=== PATIENT | female | born 1955 | race Caucasian/White ===

== ENCOUNTER 2021-03-01 16:58 | Inpatient (IN) | payer MEDICARE ==
[2021-03-01 18:15] LABS: #Basophils 0.1 thou/uL (0.0-0.2); #Eosinphils 0.1 thou/uL (0.0-0.7); #Lymphocytes 1.8 thou/uL (1.20-3.40); #Monocytes 1.2 thou/uL (0.11-0.59); #Neutrophils 13.8 thou/uL (1.40-6.50); %Basophils 0.3 % (0.0-1.0); %Eosinophils 0.3 % (0.0-10.0); %Lymphocytes 10.8 % (21.0-51.0); %Monocytes 7.2 % (0.0-10.0); %Neutrophils 81.4 % (42.0-75.0); Hemoglobin 13.5 g/dL (12.0-16.0); Mean Corpuscular HGB CONC 34.4 g/dL (32.0-36.0); Mean Corpuscular Volume 90.1 fL (78.0-98.0); Mean Platelet Volume 7.3 fL (7.4-10.4); Platelet Count 335 thou/uL (130-400); Red Blood Cell (RBC) Count 4.36 mill/uL (4.20-5.40)
[2021-03-01 18:36] LABS: ALT (SGPT) 14 U/L (8-55); AST (SGOT) 25 U/L (5-34); Albumin 3.8 g/dL (3.4-4.8); Alkaline Phosphatase 97 U/L (40-110); Anion Gap 11 mmol/L (10-20); BUN (Urea Nitrogen) 13 mg/dL (9.8-20.1); Bilirubin, Total 0.8 mg/dL (0.2-1.2); Calc. Creatinine Clearance 0 mL/min (70-130); Calcium 8.3 mg/dL (7.8-10.44); Carbon Dioxide 24 mmol/L (23-31); Globulin 3.1 g/dL (2.4-3.5); Glucose 117 mg/dL (80-115); Potassium 3.1 mmol/L (3.5-5.1); Protein, Total 6.9 g/dL (5.8-8.1)
[2021-03-01 18:43] LABS: Chloride 74 mmol/L (98-107); Sodium 106 mmol/L (136-145)
[2021-03-01 19:05] LABS: Bilirubin Negative (Negative); Blood, Urine 3+ (Negative); Clarity Clear (Clear); Glucose, Urine (Dipstick) Normal (Negative); Ketone, Urine 60 mg/dL (Negative); Leukocyte Negative Leu/uL (Negative); Mucous/LPF Rare LPF (<2+); Nitrite Negative (Negative); Protein, Urine (Dipstick) 70 mg/dL (Neg-Trace); RBC/HPF Greater than 50 HPF (0-3); Specific Gravity, Urine 1.025 (1.002-1.036); Urobilinogen Normal mg/dL (Less than 2); pH, Urine 6.5 (5.0-9.0)
[2021-03-01] MEDS ORDERED: Potassium Chloride 20 MEQ TAB PO SCH ×2 (19:09→22:45)
[2021-03-01 19:13] LABS: Bacteria/HPF 1+ HPF (None Seen)
[2021-03-01 19:41] LABS: Magnesium 1.5 mg/dL (1.6-2.6)
[2021-03-01 19:45] LABS: Phosphorus 1.9 mg/dL (2.3-4.7)
[2021-03-01] MEDS ORDERED: PHOS-NAK 1 PKT PACK PO SCH (20:00)
[2021-03-01] MEDS ORDERED: Magnesium Sulfate 4 GM in Sodium Chloride 0.9% 250 ML 250 ML IVPB SCH (20:00)
[2021-03-01] MEDS ORDERED: Potassium Chloride 20 MEQ TAB ONE (20:09)
[2021-03-01 20:18] LABS: SARS-CoV-2 NAA Rapid Test Not Detected (NotDetected)
[2021-03-01] MEDS ORDERED: Cefdinir 300 MG CAP PO SCH (20:45)
[2021-03-01] MEDS ORDERED: Ondansetron PF 4 MG/2 ML Vial IVP PRN (20:50)
[2021-03-01] MEDS ORDERED: Ondansetron ODT 4 MG TAB PO PRN (20:50)
[2021-03-01] MEDS ORDERED: Acetaminophen 650 MG Suppository PR PRN (20:50)
[2021-03-01 20:54] LABS: Anion Gap 10 mmol/L (10-20); BUN (Urea Nitrogen) 13 mg/dL (9.8-20.1); Calc. Creatinine Clearance 0 mL/min (70-130); Carbon Dioxide 26 mmol/L (23-31); Glucose 109 mg/dL (80-115); Potassium 3.1 mmol/L (3.5-5.1)
[2021-03-01 21:00] LABS: Chloride 74 mmol/L (98-107); Sodium 107 mmol/L (136-145)
[2021-03-01] MEDS ORDERED: Electrolyte Replacement Protocol 1 EACH FS SCH (21:00)
[2021-03-01 22:15] VITALS: BMI 31.1
[2021-03-01 22:30] LABS: Anion Gap 11 mmol/L (10-20); BUN (Urea Nitrogen) 12 mg/dL (9.8-20.1); Calc. Creatinine Clearance 147 mL/min (70-130); Calcium 8.1 mg/dL (7.8-10.44); Carbon Dioxide 25 mmol/L (23-31); Chloride 75 mmol/L (98-107); Glucose 110 mg/dL (80-115); Potassium 3.5 mmol/L (3.5-5.1)
[2021-03-01 22:32] LABS: Sodium 107 mmol/L (136-145)
[2021-03-01] MEDS: cefTRIAXone\\ROCEPHIN 1 GM in Sodium Chloride 0.9% 100 ML IVPB SCH (22:48)
[2021-03-01] MEDS: Sodium Chloride 3% 100 ML IVPB SCH ×6 (22:55→23:43)
[2021-03-01] MEDS ORDERED: Sodium Chloride 3% 100 ML IVPB SCH (23:00)
[2021-03-01] MEDS ORDERED: Dextrose 50% Abboject 50 ML SYRINGE SLOW IVP PRN (23:57)
[2021-03-01] MEDS ORDERED: HumaLOG 300 UNITS/3 ML VIAL SC PRN ×2 (23:57)
[2021-03-01] MEDS ORDERED: Dextrose 5% in Water 1,000 ML IV PRN (23:57)
[2021-03-02 01:56] LABS: #Eosinphils 0.1 thou/uL (0.0-0.7); #Lymphocytes 1.8 thou/uL (1.20-3.40); #Neutrophils 14.1 thou/uL (1.40-6.50); %Basophils 0.2 % (0.0-1.0); %Eosinophils 0.4 % (0.0-10.0); %Lymphocytes 10.2 % (21.0-51.0); %Monocytes 10.9 % (0.0-10.0); %Neutrophils 78.3 % (42.0-75.0); Hemoglobin 14.3 g/dL (12.0-16.0); Mean Corpuscular HGB CONC 35.4 g/dL (32.0-36.0); Mean Corpuscular Hemoglobin 31.9 pg (27.0-31.0); Mean Corpuscular Volume 90.1 fL (78.0-98.0); Mean Platelet Volume 6.9 fL (7.4-10.4); Platelet Count 346 thou/uL (130-400); Red Blood Cell (RBC) Count 4.48 mill/uL (4.20-5.40); White Blood Cell (WBC) Count 18.1 thou/uL (4.8-10.8)
[2021-03-02 02:10] LABS: Anion Gap 13 mmol/L (10-20); BUN (Urea Nitrogen) 10 mg/dL (9.8-20.1); Calc. Creatinine Clearance 130 mL/min (70-130); Calcium 8.2 mg/dL (7.8-10.44); Carbon Dioxide 21 mmol/L (23-31); Chloride 77 mmol/L (98-107); Glucose 118 mg/dL (80-115); Potassium 4.1 mmol/L (3.5-5.1)
[2021-03-02 02:12] LABS: Sodium 107 mmol/L (136-145)
[2021-03-02] MEDS ORDERED: Sodium Chloride 3% 100 ML IVPB SCH (02:45)
[2021-03-02] MEDS: Acetaminophen 325 MG TAB PO PRN (03:06)
[2021-03-02] MEDS ORDERED: Morphine 4 MG/ML VIAL SLOW IVP SCH (04:15)
[2021-03-02 05:10] LABS: Anion Gap 13 mmol/L (10-20); BUN (Urea Nitrogen) 9 mg/dL (9.8-20.1); Calc. Creatinine Clearance 139 mL/min (70-130); Calcium 7.9 mg/dL (7.8-10.44); Carbon Dioxide 21 mmol/L (23-31); Chloride 80 mmol/L (98-107); Glucose 102 mg/dL (80-115); Potassium 3.8 mmol/L (3.5-5.1)
[2021-03-02 05:13] LABS: Sodium 110 mmol/L (136-145)
[2021-03-02] MEDS ORDERED: Potassium Chloride 20 MEQ TAB PO SCH (05:30)
[2021-03-02 07:30] LABS: Magnesium 2.1 mg/dL (1.6-2.6); Phosphorus 1.5 mg/dL (2.3-4.7)
[2021-03-02] MEDS: Enoxaparin Sodium 40 MG/0.4 ML SYRINGE SC SCH (08:18)
[2021-03-02] MEDS: Sodium Chloride 1 GM TAB PO SCH ×3 (08:20→20:49)
[2021-03-02 08:35] LABS: Anion Gap 10 mmol/L (10-20); BUN (Urea Nitrogen) 8 mg/dL (9.8-20.1); Calc. Creatinine Clearance 134 mL/min (70-130); Calcium 7.9 mg/dL (7.8-10.44); Carbon Dioxide 24 mmol/L (23-31); Chloride 83 mmol/L (98-107); Glucose 123 mg/dL (80-115); Potassium 3.9 mmol/L (3.5-5.1)
[2021-03-02 08:41] LABS: Sodium 113 mmol/L (136-145)
[2021-03-02] MEDS ORDERED: Potassium Phosphate 30 MMOL in Sodium Chloride 0.9% 250 ML 250 ML IVPB SCH (09:15)
[2021-03-02 12:39] LABS: Anion Gap 14 mmol/L (10-20); BUN (Urea Nitrogen) 9 mg/dL (9.8-20.1); Calc. Creatinine Clearance 132 mL/min (70-130); Carbon Dioxide 21 mmol/L (23-31); Chloride 84 mmol/L (98-107); Glucose 116 mg/dL (80-115); Potassium 4.9 mmol/L (3.5-5.1); Sodium 114 mmol/L (136-145)
[2021-03-02 14:23] LABS: T4 7.6 ug/dL (4.87-11.72); Thyroid Stimulating Hormone 0.7623 uIU/mL (0.35-4.94)
[2021-03-02] MEDS ORDERED: Lidocaine 5% Patch TD SCH (14:30)
[2021-03-02] MEDS: traMADol HCl 50 MG TAB PO PRN (14:54)
[2021-03-02] MEDS: tiZANidine HCl 4 MG TAB PO PRN (14:56)
[2021-03-02 17:23] LABS: Anion Gap 10 mmol/L (10-20); BUN (Urea Nitrogen) 8 mg/dL (9.8-20.1); Calc. Creatinine Clearance 153 mL/min (70-130); Calcium 7.8 mg/dL (7.8-10.44); Carbon Dioxide 22 mmol/L (23-31); Chloride 86 mmol/L (98-107); Glucose 108 mg/dL (80-115); Potassium 4.3 mmol/L (3.5-5.1)
[2021-03-02 17:33] LABS: Sodium 114 mmol/L (136-145)
[2021-03-02] MEDS: cefTRIAXone\\ROCEPHIN 1 GM in Sodium Chloride 0.9% 100 ML IVPB SCH (20:48)
[2021-03-02] MEDS: Atorvastatin Calcium 10 MG TAB PO SCH (20:48)
[2021-03-02 21:32] LABS: Anion Gap 10 mmol/L (10-20); BUN (Urea Nitrogen) 9 mg/dL (9.8-20.1); Calc. Creatinine Clearance 123 mL/min (70-130); Calcium 8.3 mg/dL (7.8-10.44); Carbon Dioxide 25 mmol/L (23-31); Chloride 87 mmol/L (98-107); Glucose 142 mg/dL (80-115)
[2021-03-02 21:37] LABS: Sodium 118 mmol/L (136-145)
[2021-03-02] MEDS ORDERED: Dextrose 5% in Water 1,000 ML IV SCH (22:45)
[2021-03-03] MEDS: tiZANidine HCl 4 MG TAB PO PRN ×2 (00:38→21:46)
[2021-03-03] MEDS: traMADol HCl 50 MG TAB PO PRN ×3 (00:38→21:31)
[2021-03-03] MEDS ORDERED: Transdermal Patch Removal TOP SCH ×2 (02:30→22:30)
[2021-03-03 03:11] LABS: #Eosinphils 0.1 thou/uL (0.0-0.7); #Lymphocytes 1.8 thou/uL (1.20-3.40); #Monocytes 1.4 thou/uL (0.11-0.59); #Neutrophils 8.9 thou/uL (1.40-6.50); %Basophils 0.3 % (0.0-1.0); %Eosinophils 0.6 % (0.0-10.0); %Lymphocytes 14.8 % (21.0-51.0); %Monocytes 11.5 % (0.0-10.0); %Neutrophils 72.8 % (42.0-75.0); Hemoglobin 12.9 g/dL (12.0-16.0); Mean Corpuscular HGB CONC 34.8 g/dL (32.0-36.0); Mean Corpuscular Hemoglobin 32.1 pg (27.0-31.0); Mean Corpuscular Volume 92.3 fL (78.0-98.0); Platelet Count 267 thou/uL (130-400); RBC Distribution Width 12.1 % (11.5-14.5); Red Blood Cell (RBC) Count 4.01 mill/uL (4.20-5.40); White Blood Cell (WBC) Count 12.2 thou/uL (4.8-10.8)
[2021-03-03 03:36] LABS: Anion Gap 11 mmol/L (10-20); BUN (Urea Nitrogen) 8 mg/dL (9.8-20.1); Calc. Creatinine Clearance 150 mL/min (70-130); Calcium 8.1 mg/dL (7.8-10.44); Carbon Dioxide 22 mmol/L (23-31); Chloride 90 mmol/L (98-107); Glucose 100 mg/dL (80-115); Potassium 3.8 mmol/L (3.5-5.1)
[2021-03-03 03:40] LABS: Sodium 119 mmol/L (136-145)
[2021-03-03 06:07] LABS: Anion Gap 11 mmol/L (10-20); BUN (Urea Nitrogen) 15 mg/dL (9.8-20.1); Calc. Creatinine Clearance 105 mL/min (70-130); Calcium 9.9 mg/dL (7.8-10.44); Carbon Dioxide 25 mmol/L (23-31); Chloride 102 mmol/L (98-107); Glucose 128 mg/dL (80-115); Potassium 3.7 mmol/L (3.5-5.1); Sodium 134 mmol/L (136-145)
[2021-03-03] MEDS: Enoxaparin Sodium 40 MG/0.4 ML SYRINGE SC SCH (08:10)
[2021-03-03] MEDS: Losartan 25 MG TAB PO SCH (08:10)
[2021-03-03 08:14] LABS: Anion Gap 11 mmol/L (10-20); BUN (Urea Nitrogen) 8 mg/dL (9.8-20.1); Calc. Creatinine Clearance 139 mL/min (70-130); Calcium 8.5 mg/dL (7.8-10.44); Carbon Dioxide 25 mmol/L (23-31); Chloride 88 mmol/L (98-107); Glucose 104 mg/dL (80-115); Potassium 3.7 mmol/L (3.5-5.1); Sodium 120 mmol/L (136-145)
[2021-03-03] MEDS: Sodium Chloride 1 GM TAB PO SCH ×2 (08:17→21:30)
[2021-03-03] MEDS ORDERED: Lidocaine 5% Patch TD SCH (10:30)
[2021-03-03 12:30] LABS: Anion Gap 11 mmol/L (10-20); BUN (Urea Nitrogen) 12 mg/dL (9.8-20.1); Calc. Creatinine Clearance 125 mL/min (70-130); Calcium 8.3 mg/dL (7.8-10.44); Carbon Dioxide 24 mmol/L (23-31); Chloride 88 mmol/L (98-107); Glucose 144 mg/dL (80-115); Potassium 3.6 mmol/L (3.5-5.1)
[2021-03-03 12:43] LABS: Sodium 119 mmol/L (136-145)
[2021-03-03] MEDS ORDERED: Sodium Chloride 1 GM TAB PO SCH (15:15)
[2021-03-03 16:12] LABS: Anion Gap 10 mmol/L (10-20); BUN (Urea Nitrogen) 12 mg/dL (9.8-20.1); Calc. Creatinine Clearance 127 mL/min (70-130); Calcium 8.5 mg/dL (7.8-10.44); Carbon Dioxide 27 mmol/L (23-31); Chloride 89 mmol/L (98-107); Glucose 95 mg/dL (80-115); Potassium 3.9 mmol/L (3.5-5.1); Sodium 122 mmol/L (136-145)
[2021-03-03 20:54] LABS: Anion Gap 9 mmol/L (10-20); BUN (Urea Nitrogen) 13 mg/dL (9.8-20.1); Calc. Creatinine Clearance 121 mL/min (70-130); Calcium 8.6 mg/dL (7.8-10.44); Carbon Dioxide 28 mmol/L (23-31); Chloride 91 mmol/L (98-107); Glucose 112 mg/dL (80-115); Potassium 3.9 mmol/L (3.5-5.1); Sodium 124 mmol/L (136-145)
[2021-03-03] MEDS: cefTRIAXone\\ROCEPHIN 1 GM in Sodium Chloride 0.9% 100 ML IVPB SCH (21:30)
[2021-03-03] MEDS: Atorvastatin Calcium 10 MG TAB PO SCH (21:31)
[2021-03-04 01:23] LABS: Anion Gap 11 mmol/L (10-20); BUN (Urea Nitrogen) 11 mg/dL (9.8-20.1); Calc. Creatinine Clearance 134 mL/min (70-130); Calcium 9.1 mg/dL (7.8-10.44); Carbon Dioxide 26 mmol/L (23-31); Chloride 91 mmol/L (98-107); Glucose 103 mg/dL (80-115); Sodium 124 mmol/L (136-145)
[2021-03-04 05:01] LABS: #Basophils 0.1 thou/uL (0.0-0.2); #Eosinphils 0.1 thou/uL (0.0-0.7); #Lymphocytes 1.9 thou/uL (1.20-3.40); #Monocytes 1.1 thou/uL (0.11-0.59); #Neutrophils 6.2 thou/uL (1.40-6.50); %Eosinophils 1.1 % (0.0-10.0); %Lymphocytes 20.3 % (21.0-51.0); %Monocytes 11.7 % (0.0-10.0); Hemoglobin 13.7 g/dL (12.0-16.0); Mean Corpuscular HGB CONC 34.8 g/dL (32.0-36.0); Mean Corpuscular Hemoglobin 32.4 pg (27.0-31.0); Mean Corpuscular Volume 93.1 fL (78.0-98.0); Mean Platelet Volume 7.3 fL (7.4-10.4); Platelet Count 285 thou/uL (130-400); RBC Distribution Width 12.2 % (11.5-14.5); Red Blood Cell (RBC) Count 4.24 mill/uL (4.20-5.40); White Blood Cell (WBC) Count 9.4 thou/uL (4.8-10.8)
[2021-03-04 05:24] LABS: Anion Gap 10 mmol/L (10-20); BUN (Urea Nitrogen) 10 mg/dL (9.8-20.1); Calc. Creatinine Clearance 135 mL/min (70-130); Calcium 8.6 mg/dL (7.8-10.44); Carbon Dioxide 26 mmol/L (23-31); Chloride 92 mmol/L (98-107); Glucose 98 mg/dL (80-115); Potassium 3.5 mmol/L (3.5-5.1); Sodium 124 mmol/L (136-145)
[2021-03-04 06:39] LABS: Magnesium 1.8 mg/dL (1.6-2.6); Phosphorus 2.4 mg/dL (2.3-4.7)
[2021-03-04] MEDS: Potassium Chloride 20 MEQ TAB PO SCH ×2 (06:51→12:09)
[2021-03-04] MEDS ORDERED: Lidocaine 5% Patch TD SCH (09:00)
[2021-03-04] MEDS: Enoxaparin Sodium 40 MG/0.4 ML SYRINGE SC SCH (09:46)
[2021-03-04] MEDS: Losartan 25 MG TAB PO SCH (09:50)
[2021-03-04] MEDS: Sodium Chloride 1 GM TAB PO SCH ×3 (09:50→20:27)
[2021-03-04] MEDS ORDERED: Losartan 25 MG TAB PO SCH (12:45)
[2021-03-04] MEDS: tiZANidine HCl 4 MG TAB PO PRN (15:25)
[2021-03-04] MEDS ORDERED: Methocarbamol 500 MG TAB PO SCH (18:00)
[2021-03-04] MEDS: traMADol HCl 50 MG TAB PO PRN (18:57)
[2021-03-04] MEDS: cefTRIAXone\\ROCEPHIN 1 GM in Sodium Chloride 0.9% 100 ML IVPB SCH (20:27)
[2021-03-04] MEDS: Atorvastatin Calcium 10 MG TAB PO SCH (20:27)
[2021-03-04] MEDS ORDERED: hydrALAZINE 20 MG/ML VIAL SLOW IVP PRN (20:38)
[2021-03-04] MEDS ORDERED: Transdermal Patch Removal TOP SCH (21:00)
[2021-03-04] MEDS ORDERED: Bacitracin 1 PK TOP SCH (22:15)
[2021-03-05 04:33] LABS: #Basophils 0.1 thou/uL (0.0-0.2); #Eosinphils 0.1 thou/uL (0.0-0.7); #Lymphocytes 2.2 thou/uL (1.20-3.40); %Basophils 0.6 % (0.0-1.0); %Lymphocytes 19.7 % (21.0-51.0); %Monocytes 8.5 % (0.0-10.0); %Neutrophils 70.2 % (42.0-75.0); Hemoglobin 12.8 g/dL (12.0-16.0); Mean Corpuscular Hemoglobin 32.8 pg (27.0-31.0); Mean Corpuscular Volume 93.8 fL (78.0-98.0); Mean Platelet Volume 6.9 fL (7.4-10.4); Platelet Count 283 thou/uL (130-400); RBC Distribution Width 12.3 % (11.5-14.5); Red Blood Cell (RBC) Count 3.91 mill/uL (4.20-5.40); White Blood Cell (WBC) Count 11.3 thou/uL (4.8-10.8)
[2021-03-05 04:56] LABS: Anion Gap 11 mmol/L (10-20); BUN (Urea Nitrogen) 9 mg/dL (9.8-20.1); Calc. Creatinine Clearance 126 mL/min (70-130); Calcium 8.7 mg/dL (7.8-10.44); Carbon Dioxide 26 mmol/L (23-31); Chloride 93 mmol/L (98-107); Glucose 101 mg/dL (80-115); Potassium 4.4 mmol/L (3.5-5.1); Sodium 126 mmol/L (136-145)
[2021-03-05] MEDS: Potassium Chloride 20 MEQ TAB PO SCH (08:38)
[2021-03-05] MEDS: Enoxaparin Sodium 40 MG/0.4 ML SYRINGE SC SCH (08:39)
[2021-03-05] MEDS: Bacitracin 1 PK TOP SCH ×2 (08:39→20:52)
[2021-03-05] MEDS ORDERED: Losartan 25 MG TAB PO SCH (09:00)
[2021-03-05] MEDS: Sodium Chloride 1 GM TAB PO SCH ×3 (09:37→20:50)
[2021-03-05] MEDS ORDERED: Methocarbamol 500 MG TAB PO PRN (14:03)
[2021-03-05] MEDS: Acetaminophen 325 MG TAB PO PRN (18:15)
[2021-03-05] MEDS: traMADol HCl 50 MG TAB PO PRN (20:50)
[2021-03-05] MEDS: Atorvastatin Calcium 10 MG TAB PO SCH (20:50)
[2021-03-06] MEDS ORDERED: Losartan 25 MG TAB PO SCH (09:00)
[2021-03-06] MEDS: Enoxaparin Sodium 40 MG/0.4 ML SYRINGE SC SCH (09:05)
[2021-03-06] MEDS: Potassium Chloride 20 MEQ TAB PO SCH (09:05)
[2021-03-06] MEDS: Bacitracin 1 PK TOP SCH (09:05)
[2021-03-06] MEDS: Sodium Chloride 1 GM TAB PO SCH (09:08)
[2021-03-06] MEDS: Acetaminophen 325 MG TAB PO PRN (09:10)
[2021-03-06 10:52] LABS: #Eosinphils 0.1 thou/uL (0.0-0.7); #Lymphocytes 1.8 thou/uL (1.20-3.40); #Monocytes 0.8 thou/uL (0.11-0.59); #Neutrophils 7.8 thou/uL (1.40-6.50); %Basophils 0.3 % (0.0-1.0); %Eosinophils 1.2 % (0.0-10.0); %Lymphocytes 16.8 % (21.0-51.0); %Monocytes 7.3 % (0.0-10.0); %Neutrophils 74.4 % (42.0-75.0); Hemoglobin 13.5 g/dL (12.0-16.0); Mean Corpuscular HGB CONC 33.7 g/dL (32.0-36.0); Mean Corpuscular Hemoglobin 31.8 pg (27.0-31.0); Mean Corpuscular Volume 94.4 fL (78.0-98.0); Mean Platelet Volume 7.1 fL (7.4-10.4); Platelet Count 294 thou/uL (130-400); RBC Distribution Width 12.5 % (11.5-14.5); Red Blood Cell (RBC) Count 4.24 mill/uL (4.20-5.40); White Blood Cell (WBC) Count 10.5 thou/uL (4.8-10.8)
[2021-03-06 12:03] VITALS: BP 143/65; TEMP 97.6
[2021-03-06 12:15] LABS: Anion Gap 12 mmol/L (10-20); BUN (Urea Nitrogen) 14 mg/dL (9.8-20.1); Calc. Creatinine Clearance 112 mL/min (70-130); Carbon Dioxide 24 mmol/L (23-31); Chloride 94 mmol/L (98-107); Glucose 189 mg/dL (80-115); Potassium 4.3 mmol/L (3.5-5.1); Sodium 126 mmol/L (136-145)
== END 2021-03-06 14:30 | disposition home or self-care (01) | DRG 643 ==
LOC: ERS 16:58 → CCU 20:19 → 2NO 03-03 13:26
PROVIDERS: ADMIT Student in an Organized Health Care Education/Training Program; ATTEND Internal Medicine
DX: E22.2 Syndrome of inappropriate secretion of antidiuretic hormone (principal); Z20.822 Contact with and (suspected) exposure to COVID-19; Z23 Encounter for immunization; G93.41 Metabolic encephalopathy; N39.0 Urinary tract infection, site not specified; E87.2 Acidosis; I44.1 Atrioventricular block, second degree; M62.838 Other muscle spasm; E87.6 Hypokalemia; E83.39 Other disorders of phosphorus metabolism; E83.42 Hypomagnesemia; F17.210 Nicotine dependence, cigarettes, uncomplicated; E78.5 Hyperlipidemia, unspecified; G89.29 Other chronic pain; M54.9 Dorsalgia, unspecified; E11.9 Type 2 diabetes mellitus without complications; T50.2X5A Adverse effect of carbonic-anhydrase inhibitors, benzothiadiazides and other diuretics, initial encounter; J44.9 Chronic obstructive pulmonary disease, unspecified; I08.1 Rheumatic disorders of both mitral and tricuspid valves; E66.9 Obesity, unspecified; Z68.29 Body mass index [BMI] 29.0-29.9, adult; Z79.899 Other long term (current) drug therapy; Z79.84 Long term (current) use of oral hypoglycemic drugs
CPT/HCPCS: 36415; 36416; 71045; 72170; 80048; 81003; 81015; 83735; 83880; 83930; 83935; 84100; 84436; 84443; 85025; 85652; 86140; 87086; 90471; 90732; 93005; 93010; 93306; 96365; G0009; J0360; J0696; J1650; J2270; J3475; J3490; J7050; J7070; J7131; U0002

== ENCOUNTER 2021-08-16 12:25 | Outpatient (CLI) | payer MEDICARE ==
[2021-08-16 14:35] LABS: Anion Gap 13 mmol/L (10-20); BUN (Urea Nitrogen) 12 mg/dL (9.8-20.1); Calc. Creatinine Clearance 0 mL/min (70-130); Calcium 9.2 mg/dL (7.8-10.44); Carbon Dioxide 27 mmol/L (23-31); Chloride 101 mmol/L (98-107); Glucose 181 mg/dL (80-115); Sodium 137 mmol/L (136-145)
[2021-08-17 02:04] LABS: SARS-CoV-2 PCR by NAA Not Detected (NotDetected)
== END 2021-08-16 12:26 | disposition home or self-care (01) ==
LOC: LABBT 12:25
PROVIDERS: ATTEND Radiology Diagnostic Radiology
DX: Z01.818 Encounter for other preprocedural examination (principal); M51.16 Intervertebral disc disorders with radiculopathy, lumbar region; E87.1 Hypo-osmolality and hyponatremia; Z20.822 Contact with and (suspected) exposure to COVID-19
CPT/HCPCS: 80048; 93005; U0003; U0005; 93010

== ENCOUNTER 2021-08-21 06:02 | Day surgery (SDC) | payer MEDICARE ==
[2021-08-20 10:17] VITALS: BMI 32.5
[2021-08-21] MEDS ORDERED: fentaNYL Citrate/PF 100 MCG/2 ML SYRINGE ONE (06:15)
[2021-08-21] MEDS ORDERED: Bupivacaine PF 0.5% 30 ML VIAL ONE (06:40)
[2021-08-21] MEDS ORDERED: Thrombin 5000 UNITS/5 ML VIAL ONE (06:40)
[2021-08-21] MEDS ORDERED: SUGAMMADEX SODIUM 200 MG/2 ML VIAL ONE (06:58)
[2021-08-21] MEDS ORDERED: PROPOFOL 200 MG/20 ML VIAL ONE (07:05)
[2021-08-21] MEDS ORDERED: Lidocaine 1% PF 5 ML VIAL ONE ×2 (07:05)
[2021-08-21] MEDS ORDERED: Dexamethasone 20 MG/5 ML VIAL ONE (07:05)
[2021-08-21] MEDS ORDERED: PHENYLEPHRINE-NS 100 MCG/ML 10 ML SYRINGE ONE (07:05)
[2021-08-21] MEDS ORDERED: Ketorolac Tromethamine 30 MG/ML VIAL ONE (07:05)
[2021-08-21] MEDS ORDERED: Rocuronium Bromide 10 MG/ML (10ML VIAL) ONE (07:05)
[2021-08-21] MEDS ORDERED: Albuterol Sulfate HFA (OR ONLY) ONE (07:05)
[2021-08-21] MEDS ORDERED: Ondansetron PF 4 MG/2 ML Vial ONE (07:05)
[2021-08-21] MEDS ORDERED: cefOXitin 2 GM VIAL ONE (07:06)
[2021-08-21] MEDS ORDERED: CEFAZOLIN 1 GM VIAL ONE (07:11)
[2021-08-21] MEDS ORDERED: Lidocaine 1% w/Epinephrine 1:100K 20 ML VIAL ONE (07:28)
[2021-08-21] MEDS ORDERED: Fentanyl 100 MCG/2 ML VIAL ONE ×2 (09:41→10:34)
[2021-08-21] MEDS ORDERED: CEFAZOLIN 2 GM VIAL ONE (12:09)
[2021-08-21] MEDS ORDERED: Sodium Chloride 0.9% 100 ML ONE (12:09)
== END 2021-08-21 12:50 | disposition home or self-care (01) ==
LOC: SDC 06:02
PROVIDERS: ATTEND Neurological Surgery
PROC: 0ST20ZZ Resection of Lumbar Vertebral Disc, Open Approach (ICD-10-PCS; principal; 2021-08-21)
PROC: 01NB0ZZ Release Lumbar Nerve, Open Approach (ICD-10-PCS; 2021-08-21)
DX: M51.16 Intervertebral disc disorders with radiculopathy, lumbar region (principal); M48.062 Spinal stenosis, lumbar region with neurogenic claudication; M51.25 Other intervertebral disc displacement, thoracolumbar region; M43.16 Spondylolisthesis, lumbar region; E78.5 Hyperlipidemia, unspecified; G89.4 Chronic pain syndrome; F17.200 Nicotine dependence, unspecified, uncomplicated; Z79.82 Long term (current) use of aspirin; Z79.84 Long term (current) use of oral hypoglycemic drugs; Z79.899 Other long term (current) drug therapy
CPT/HCPCS: 76000; C1713; J0690; J0694; J1100; J1885; J2405; J2704; J3010; J3490; S0020

== ENCOUNTER 2021-12-25 09:42 | Day surgery (SDC) | payer MEDICARE ==
[2021-12-23 12:38] VITALS: BMI 32.5
[2021-12-25] MEDS ORDERED: Lidocaine 1% (PF) 30 ML VIAL ONE (10:16)
[2021-12-25] MEDS ORDERED: EPINEPHrine 1 MG/ML AMP ONE (10:16)
[2021-12-25] MEDS ORDERED: Propofol 500 MG/50 ML VIAL ONE (10:25)
[2021-12-25] MEDS ORDERED: fentaNYL Citrate/PF 100 MCG/2 ML SYRINGE ONE (11:31)
[2021-12-25] MEDS ORDERED: PROPOFOL 40 ML ONE (11:32)
[2021-12-25] MEDS ORDERED: Famotidine/PF 20 mg/2ml Vial ONE (11:32)
[2021-12-25] MEDS ORDERED: CEFAZOLIN 2 GM VIAL ONE (11:36)
[2021-12-25] MEDS ORDERED: Sodium Chloride 0.9% 100 ML ONE (11:36)
[2021-12-25] MEDS ORDERED: Lidocaine 1% MPF 2 ML VIAL ONE (11:43)
[2021-12-25] MEDS ORDERED: Ketorolac Tromethamine 30 MG/ML VIAL ONE (11:43)
[2021-12-25] MEDS ORDERED: ePHEDrine 50 MG/ML VIAL ONE (11:43)
[2021-12-25] MEDS ORDERED: Metoclopramide HCl 10 MG/2 ML VIAL ONE (11:43)
[2021-12-25] MEDS ORDERED: Ondansetron PF 4 MG/2 ML Vial ONE (11:43)
== END 2021-12-25 13:35 | disposition home or self-care (01) ==
LOC: SDC 09:42
PROVIDERS: ATTEND Neurological Surgery
PROC: 01N50ZZ Release Median Nerve, Open Approach (ICD-10-PCS; principal; 2021-12-25)
DX: G56.02 Carpal tunnel syndrome, left upper limb (principal); E78.5 Hyperlipidemia, unspecified; G89.4 Chronic pain syndrome; M19.90 Unspecified osteoarthritis, unspecified site; F17.200 Nicotine dependence, unspecified, uncomplicated; Z79.82 Long term (current) use of aspirin; Z79.84 Long term (current) use of oral hypoglycemic drugs; Z79.899 Other long term (current) drug therapy
CPT/HCPCS: J0171; J0690; J1885; J2001; J2405; J2704; J2765; J3490; S0028

== ENCOUNTER 2024-11-23 13:15 | Outpatient (CLI) | payer MEDICARE | END 2024-11-23 13:16 | disposition home or self-care (01) | LOC: BICMAMMO 13:15 | PROVIDERS: ATTEND Nurse Practitioner Family | DX: Z12.31 Encounter for screening mammogram for malignant neoplasm of breast (principal) | CPT/HCPCS: 77063; 77067 ==